=== PATIENT | female | born 1930 | race Caucasian/White ===

== ENCOUNTER → 2017-04-13 | Outpatient (CLI) | payer MEDICARE, BC ==
--- NOTE | 2017-04-13 12:34 | REP ---
Clinical: Dyspnea. Technique: PA and lateral. Comparison: 05/24/2007. Findings: Cardiomegaly is appreciated. Lung medina demonstrate diffuse chronic interstitial changes and fibrosis with evidence for COPD and emphysematous disease. No acute consolidation, effusion, or pneumothorax. Skeletal structures demonstrate osteopenia and degenerative changes. Impression: COPD and diffuse chronic interstitial changes. No obvious acute cardiopulmonary process. Cardiomegaly. Signed by Moreno Garcia MD 04/13/2017 12:25 P
== END ==
LOC: M SMT 12:02
PROVIDERS: ATTEND Internal Medicine Cardiovascular Disease
DX: R06.00 Dyspnea, unspecified (principal)

== ENCOUNTER → 2017-04-26 | Outpatient (CLI) | payer MEDICARE, BC ==
--- NOTE | 2017-04-26 15:15 | PFTRPT ---
Tech: Lashanda Richard [employer]ER Age: 87 Sex: Female Race: Height: 66.00 Inches Weight: 171.00 Lbs BSA: 1.87 PULMONARY FUNCTION REPORT ORDERING PROVIDER: Johanny Pickett MD DATE OF SERVICE: 04/26/17 SPIROMETRY: Excellent technical quality. Some difficulty with the required maneuvers is noted. The forced vital capacity is normal. The FEV1 is in proportion. The obstructive index is, therefore, normal. FLOW VOLUME LOOP: The expiratory limb of the flow volume loop is normal. LUNG VOLUMES: The total lung capacity is normal. The residual volume suggests a degree of air trapping. DIFFUSION CAPACITY: The diffusion capacity is reduced. HEMOGLOBIN: No hemoglobin is available for correction. AIRWAY MECHANICS: Airways resistance and conductance are normal. IMPRESSION: Cannot rule out a degree of air trapping. Decreased diffusion capacity will need to be correlated with a hemoglobin when available. Please correlate clinically. MTDD
== END ==
LOC: M CARPUL 14:00
PROVIDERS: ATTEND Internal Medicine Cardiovascular Disease
DX: R06.02 Shortness of breath (principal)

== ENCOUNTER → 2017-05-14 | Outpatient (CLI) | payer MEDICARE, BC ==
--- NOTE | 2017-05-14 14:58 | REP ---
CT of the chest without IV contrast: Comparison is 05/26/2007. There are no infiltrates or effusions. There are no masses or nodules. There is a parenchymal scar in the right lower lobe and a parenchymal scar in the left lower lobe. There is no subpleural honeycombing. There are no nodules or masses. There is a tiny calcific pleural plaque in the deep posterior sulcus of the right lung, unchanged. The ascending thoracic aorta is mildly dilated measuring 4.1 cm transverse diameter. The unenhanced thoracic aorta is otherwise unremarkable except for occasional calcified atheroma. Cardiac size is enlarged. There is no pericardial effusion. In the upper abdomen I suspect there are small calculi layering along the dependent wall of the gallbladder. The gallbladder is otherwise unremarkable. The visualized portion of the unenhanced hepatic parenchyma is unremarkable. Pancreas and spleen are unremarkable. The adrenals are unremarkable. The renal upper poles are unremarkable except for parapelvic cysts in the left kidney. Impression: No subpleural honeycombing. There is a parenchymal scar in the right lower lobe and a parenchymal scar in the left lower lobe. Tiny calcific pleural plaque in the deep posterior sulcus of the right lung. No acute infiltrates. No masses or nodules. No mediastinal or axillary adenopathy. In the absence of IV contrast the study is insensitive for hilar adenopathy. The ascending thoracic aorta is mildly dilated measuring 4.1 cm transverse diameter. Parapelvic cysts in the left kidney. Multiple tiny gallbladder calculi. Signed by Umesh Lamas MD 05/14/2017 02:50 P
== END ==
LOC: M RAD 11:25
PROVIDERS: ATTEND Internal Medicine Cardiovascular Disease
DX: R06.00 Dyspnea, unspecified (principal); J84.112 Idiopathic pulmonary fibrosis; N28.1 Cyst of kidney, acquired; K82.8 Other specified diseases of gallbladder